=== PATIENT | female | born 1980 | race Caucasian/White ===

== ENCOUNTER → 2016-12-09 | Outpatient (CLI) | payer OTHER ==
--- NOTE | 2016-12-09 12:55 | US ---
Thyroid Ultrasound Indication: Status post thyroid cancer. Surveillance. Technique: Longitudinal and transverse ultrasound imaging of the thyroid gland. Comparison: Thyroid ultrasound dated April 04, 2016 Findings: The multinodular thyroid gland is absent (presumably surgically resected and/or ablated wit h iodine therapy). A mildly suspicious nodule in the left thyroidectomy bed, measuring 1.0 x 0.7 x 0.4 cm contains echog enic foci, which likely represent calcifications. The nodule has marked increased blood flow on color Doppler imaging. No abnormality in the right thyroidectomy bed. No enlarged lymph nodes along the right and left juvenal chain. Impression: Mildly suspicious nodule containing calcifications in the left thyroidectomy bed. Query l ocoregional recurrence or residual disease. Comment: If desired, the nodule would be amenable to fine needle aspiration. The case was discussed with Dr. Mallory Alvarez on December 09, 2016.
== END ==
LOC: BMCIMAGING 07:53
PROVIDERS: ATTEND Internal Medicine Endocrinology, Diabetes & Metabolism
DX: E04.1 Nontoxic single thyroid nodule (principal); Z85.850 Personal history of malignant neoplasm of thyroid
CPT/HCPCS: 76536-PO